=== PATIENT | female | born 2000 | race African-American/Black ===

== ENCOUNTER 2021-01-28 23:51 | Emergency (ER) | payer OTHER ==
[~2021-01-28] VITALS: Ht 152.4 cm; Wt 60.2 kg
--- NOTE | 2021-01-29 00:22 | PHYS DOC ---
Past History Past Medical History: No Pertinent History Past Surgical History: No Surgical History Alcohol Use: None Adult General Chief Complaint Chief Complaint: FLANK PAIN HPI HPI Patient is an otherwise healthy 20-year-old female, who presents to the emergency department with right flank pain. States that it started earlier in the day, is in the right flank, 7 out of 10, sharp in nature with occasional radiation down to her groin. States she is never had anything like this before. [place] and vomiting but she hasn't had either. Denies any recent traumas, travels, fevers chest pain, shortness of breath, other abdominal pain, dysuria, hematuria, blood in the stool. Denies any history of STIs, vaginal bleeding, discharge or pain. Review of Systems Review of Systems Review of systems otherwise unremarkable except noted in HPI Current Medications Current Medications Current Medications Medications (Trade) Dose Ordered Sig/Wes Start Time Stop Time Status Last Admin Dose Admin Morphine Sulfate (Morphine 4mg Syringe) 4 mg 1X ONCE 01/29/21 00:30 01/29/21 00:31 Allergies Allergies Allergies Coded Allergies Type Severity Reaction Last Updated Verified No Known Drug Allergies 01/29/21 No Physical Exam Physical Exam Constitutional: Well developed, well nourished, no acute distress, non-toxic appearance. [] HENT: Normocephalic, atraumatic, bilateral external ears normal, oropharynx moist, no oral exudates, nose normal. [] Eyes: conjunctiva normal, no discharge. [] Neck: Normal range of motion, no tenderness, supple, no stridor. [] Cardiovascular:Heart rate regular rhythm, no murmur [] Lungs & Thorax: Bilateral breath sounds clear to auscultation [] Abdomen: Bowel sounds normal, soft, no tenderness, no masses, no pulsatile masses. [] Skin: Warm, dry, no erythema, no rash. [] Back: No tenderness, no CVA tenderness. [] Extremities: No tenderness, no cyanosis, no clubbing, ROM intact, no edema. [] Neurologic: Alert and oriented X 3, no focal deficits noted. [] Psychologic: Affect normal, judgement normal, mood normal. [] Current Patient Data Vital Signs Vital Signs Date Time Temp Pulse Resp B/P (MAP) Pulse Ox O2 Delivery O2 Flow Rate FiO2 01/29/21 00:10 98.2 81 16 113/67 (82) 100 Room Air Lab Results Laboratory Tests Test 01/29/21 00:13 POC Urine HCG, Qualitative hcg negative (Negative) EKG EKG [] Radiology/Procedures Radiology/Procedures []T abdomen pelvis without contrast: Reason for examination: Right flank pain. Helical images were obtained through the abdomen and pelvis with no intravenous or oral contrast administered. Reconstruction was performed in sagittal and coronal planes. Exposure: One or more of the following individualized dose reduction techniques were utilized for this examination: 1. Automated exposure control 2. Adjustment of the mA and/or kV according to patient size 3. Use of iterative reconstruction technique. The lung bases are clear. The heart size is normal with no pericardial effusion evident. No abnormality seen at the liver, spleen, gallbladder, pancreas or adrenal glands. The stomach contains a large amount of gastric content but shows no gross obstruction. The small intestinal tract shows no abnormal dilatation or apparent obstruction. The colon shows no diverticulosis, diverticulitis or evidence of colitis. Due to the lack of intra-abdominal fat, the appendix is not identified. The kidneys show no masses, renal calculi or gross hydronephrosis or obstructive uropathy. The bladder is not optimally distended. No abnormality seen at the uterus or adnexa. There is possibly a trace of free fluid in the pelvis. No acute bony abnormalities are seen. IMPRESSION: No apparent hydronephrosis or obstructive uropathy evident. Trace of free fluid in the pelvis which may be physiologic. No other abnormalities apparent in the abdomen or pelvis. The appendix is not visualized due to lack of intra-abdominal fat and crowding of the abdominal structures. Electronically signed by: Lani Moreno MD (01/29/2021 1:09 AM) [facility] Heart Score C/O Chest Pain: No Risk Factors: Risk Factors: DM, Current or recent (<one month) smoker, HTN, HLP, family history of CAD, obesity. Risk Scores: Risk Factors: DM, Current or recent (<one month) smoker, HTN, HLP, family history of CAD, obesity. Course & Med Decision Making Course & Med Decision Making Patient is a 20-year-old female presents with right-sided flank pain for day Vital signs not concerning. Physical exam noted above. Patient placed on the monitor with IV access established. Given morphine for pain. No nausea medication needed at this time. Laboratory analysis not concerning. CT of the abdomen pelvis with no acute findings. Urinalysis with nitrite and leukocyte esterase positive urinary tract infection with some hematuria. Patient history, physical exam and diagnostic suggestive of pyelonephritis. Patient given Rocephin in the emergency department and started on antibiotic regimen. Discussed all findings with patient and recommended pain control at home. Recommended antibiotic regimen. Advised to call primary care physician first thing in the morning to update on ED visit and set up a follow-up. Gave return precautions to the ED. Patient grateful, verbalized understanding and agreed with plan of discharge. [] Dragon Disclaimer Dragon Disclaimer This electronic medical record was generated, in whole or in part, using a voice recognition dictation system. Departure Departure: Impression: Primary Impression: Flank pain Additional Impression: Pyelonephritis Disposition: HOME / SELF CARE / HOMELESS Condition: GOOD Referrals: PCP,UNKNOWN (PCP) CHEL ALMAGUER MD Patient Instructions: Pyelonephritis, Adult Additional Instructions: Thank you for coming into the emergency department tonight and letting us take care of you. Please read all the attached information carefully. Please take your antibiotics as prescribed and until gone. You can use Tylenol, Benadryl and ibuprofen as discussed for pain control at home. Please call your primary care physician first thing in the morning to update on your ED visit and set up a follow-up visit. Please come back to the emergency department with new or concerning symptoms as discussed. Scripts Cephalexin (CEPHALEXIN) 500 Mg Capsule 1 CAP PO Q6HRS for pyelonephritis for 10 Days, #39 CAP Prov: SEBASTIAN MALAVE MD 01/29/21 Problem Qualifiers SEBASTIAN MALAVE MD Jan 29, 2021 00:22
[2021-01-29 00:26] LABS: BILIRUBIN,URINE NEG (NEG); CLARITY,URINE HAZY; COLOR,URINE YELLOW; GLUCOSE,URINE NEG (NEG)
[2021-01-29 00:27] LABS: BACTERIA,URINE FEW /HPF (0-FEW); NITRITE,URINE POS (NEG); SQUAMOUS EPITHELIAL CELL,UR OCC /LPF; UROBILINOGEN,URINE 0.2 mg/dL (0.2 mg/dL); WBC,URINE 20-40 /HPF (0-4)
[2021-01-29 00:29] LABS: HEMATOCRIT 33.9 % (36.0-47.0); RED BLOOD COUNT 3.79 x10^6/uL (3.50-5.40); RED CELL DISTRIBUTION WIDTH 13.1 % (11.5-14.5)
[2021-01-29] MEDS ORDERED: MORPHINE SULFATE 4 MG/ML DISP.SYRIN. IV ONE (00:30)
[2021-01-29 00:40] LABS: CALCIUM 8.5 mg/dL (8.5-10.1); GFR 71.4; POTASSIUM 3.9 mmol/L (3.5-5.1)
[2021-01-29 00:46] LABS: ALBUMIN 3.7 g/dL (3.4-5.0); ALBUMIN/GLOBULIN RATIO 0.9 (1.0-1.7); TOTAL BILIRUBIN 0.7 mg/dL (0.2-1.0); TOTAL PROTEIN 7.9 g/dL (6.4-8.2)
--- NOTE | 2021-01-29 01:12 | RAD ---
CT abdomen pelvis without contrast: Reason for examination: Right flank pain. Helical images were obtained through the abdomen and pelvis with no intravenous or oral contrast admi nistered. Reconstruction was performed in sagittal and coronal planes. Exposure: One or more of the following individualized dose reduction techniques were utilized for thi s examination: 1. Automated exposure control 2. Adjustment of the mA and/or kV according to patient size 3. Use of iterative reconstruction technique. The lung bases are clear. The heart size is normal with no pericardial effusion evident. No abnormality seen at the liver, spleen, gallbladder, pancreas or adrenal glands. The stomach contai ns a large amount of gastric content but shows no gross obstruction. The small intestinal tract shows no abnormal dilatation or apparent obstruction. The colon shows no diverticulosis, diverticulitis or evidence of colitis. Due to the lack of intra-abdominal fat, the appendix is not identified. The kid neys show no masses, renal calculi or gross hydronephrosis or obstructive uropathy. The bladder is not optimally distended. No abnormality seen at the uterus or adnexa. There is possibl y a trace of free fluid in the pelvis. No acute bony abnormalities are seen. IMPRESSION: No apparent hydronephrosis or obstructive uropathy evident. Trace of free fluid in the pelvis which may be physiologic. No other abnormalities apparent in the abdomen or pelvis. The appendix is not visualized due to lack of intra-abdominal fat and crowding of the abdominal struc tures. Electronically signed by: Lani Moreno MD (01/29/2021 1:09 AM) [facility]
[2021-01-29] MEDS ORDERED: cefTRIAXone SODIUM 1 GM VIAL ONE (01:35)
[2021-01-29] MEDS ORDERED: IV NORMAL SALINE 50ML 50 ML ONE (01:35)
[2021-01-29] MEDS ORDERED: CEPH500C PO (01:44)
[2021-01-29 01:59] VITALS: BP 132/78
== END 2021-01-29 01:57 | disposition home or self-care (01) ==
LOC: ER 23:51
DX: N12 Tubulo-interstitial nephritis, not specified as acute or chronic (principal); R11.2 Nausea with vomiting, unspecified
CPT/HCPCS: 36415; 74150; 80053; 81001; 81025; 83690; 85027; 87086; 96365; 96375; 99284; J0696; J2270

== ENCOUNTER 2021-03-02 22:48 | Emergency (ER) | payer OTHER ==
[~2021-03-02 22:48] MED LIST: CEPH500C PO
--- NOTE | 2021-03-02 23:16 | PHYS DOC ---
Past History Past Medical History: No Pertinent History Past Surgical History: No Surgical History Alcohol Use: None General Adult EDM: Chief Complaint: CHEST PAIN HPI: HPI: ".. I ve been having chest pain tonight.. 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 Pt. localizes pain to central chest., . Patient states pain is somewhat increased with deep breath and cough. Patient denies any history of trauma while working in the long term. Patient does have past history of urinary tract infections, pyelonephritis,. Is up-to-date vaccinations. No specific ill contacts. Patient denies any fever or chills. No history of coagulopathy with her family members. Patient did have an episode of pyelonephritis last month which was treated with outpatient antibiotics. Patient has used caffeine products. Patient has had episodes of fast heart rate in the past. No history of recent travel. No history of severe ill contacts. No history immunosuppression. Review of Systems: Review of Systems: Constitutional: Denies fever or chills Eyes: Denies change in visual acuity HENT: Denies nasal congestion or sore throat Respiratory: Denies cough or shortness of breath Cardiovascular: Complains of central chest pain and tachycardia. GI: Denies abdominal pain, nausea, vomiting, bloody stools or diarrhea : Denies dysuria Musculoskeletal: Denies back pain or joint pain Integument: Denies rash Neurologic: Denies headache, focal weakness or sensory changes Endocrine: Denies polyuria or polydipsia Lymphatic: Denies swollen glands Psychiatric: Denies depression or anxiety Family History: Family History: Noncontributory to presentation Current Medications: Current Meds: Current Medications Medications (Trade) Dose Ordered Sig/Wes Start Time Stop Time Status Last Admin Dose Admin Aspirin (Aspirin Chewable) 324 mg 1X ONCE 03/02/21 23:30 03/02/21 23:31 Lactated Ringer's 1,000 ml @ 1,000 mls/hr Q1H 03/02/21 23:30 03/03/21 00:29 Allergies: Allergies: Allergies Coded Allergies Type Severity Reaction Last Updated Verified No Known Drug Allergies 01/29/21 No Physical Exam: PE: Constitutional: Well developed, well nourished, no acute distress, non-toxic appearance. [] HENT: Normocephalic, atraumatic, bilateral external ears normal, oropharynx moist, no oral exudates, nose normal. [] Eyes: PERRLA, EOMI, conjunctiva normal, no discharge. [] Neck: Normal range of motion, no tenderness, supple, no stridor. [] Cardiovascular: Tachycardia heart rate regular rhythm, no murmur []. The monitor bedside shows a sinus tachycardia with no acute morphology. Lungs & Thorax: Bilateral breath sounds equal at apex on auscultation [] Abdomen: Bowel sounds normal, soft, no tenderness, no masses, no pulsatile masses. [] Skin: Warm, dry, no erythema, no rash. [] Back: No tenderness, no CVA tenderness. [] Extremities: No tenderness, no cyanosis, no clubbing, ROM intact, no edema. No cording appreciated in legs. Neurologic: Alert and oriented X 3, normal motor function, normal sensory function, no focal deficits noted. [] Psychologic: Affect anxious, judgement normal, mood normal. [] EKG: EKG: My interpretation of EKG 1 #1 shows a sinus tachycardia 133 bpm. Some by metal P waves on the left. No findings acute STEMI of contralateral changes. Time EKG 2256 hrs. My interpretation EKG #2 shows a sinus rhythm at 68 bpm. Bimodal P waves on the left. But no findings of acute STEMI of contralateral changes. Time of this EKG is 0306 hrs. (no acute interval change other than rate )[ Radiology/Procedures: Radiology/Procedures: []][place] [id number] IMAGING REPORT Signed PATIENT: BERNADETTE GOMEZ I ACCOUNT: [id number] : 2000 LOCATION: ER AGE: 20 SEX: F EXAM STATUS: REG ER ORD. PHYSICIAN: LISA REYNOLDS MD REASON: cp PROCEDURE: PORTABLE CHEST 1V XR CHEST 1V INDICATION: cp COMPARISON STUDY: None. FINDINGS: Lungs: Normal lung volume. No pulmonary mass or consolidation. The tracheobronchial tree and hilar structures are normal. Pleura: No pleural effusion or pneumothorax. Heart and Mediastinum: The cardiomediastinal silhouette is normal. The great vessels of the thorax are normal. Bones and Soft Tissues: The bones and soft tissues are within normal limits. IMPRESSION: No acute cardiopulmonary process. Electronically signed by: Pancho Ford MD (03/03/2021 12:24 AM) [facility] DICTATED AND SIGNED BY: PANCHO FORD MD DATE: 03/03/21 0024 CC: LISA REYNOLDS MD; PCP,UNKNOWN ~MTH0 0 Heart Score: C/O Chest Pain: Yes HEART Score for Chest Pain: HEART Score for Chest Pain Response (Comments) Value History Slighlty/Non-Suspicious 0 ECG Normal 0 Age < 45 0 Risk Factors No Risk Factors 0 Troponin < Normal Limit 0 Total 0 Risk Factors: Risk Factors: DM, Current or recent (<one month) smoker, HTN, HLP, family history of CAD, obesity. Risk Scores: Score 0 - 3: 2.5% MACE over next 6 weeks - Discharge Home Score 4 - 6: 20.3% MACE over next 6 weeks - Admit for Clinical Observation Score 7 - 10: 72.7% MACE over next 6 weeks - Early Invasive Strategies Course & Med Decision Making: Course & Med Decision Making Pertinent Labs and Imaging studies reviewed. (See chart for details) Patient symptoms has resolved at time of discharge. Patient encouraged to take daily aspirin. Patient take Tylenol and ibuprofen for pain. Consider follow-up with [facility]. Consider outpatient stress testing. Patient with negative tropes x2 and a normal D-dimer patient is a relatively low risk for acute cardiac event or pulmonary embolism embolism. However must follow-up with primary care. Patient t also recommend taking Bactrim DS twice a day and follow-up urine cultures since she did have findings of urinary tract infection still. Follow- up pending cultures essential since her previous episode of pyelonephritis. Patient avoid caffeine products. Return if any concerns. Patient return if any concerns. Impression: 1. Chest Gtnp-ngffhugn-odgny wall 2. UTI 3. History of dysrhythmias-tachycardia [] Dragon Disclaimer: Dragon Disclaimer: This electronic medical record was generated, in whole or in part, using a voice recognition dictation system. Departure Departure: Referrals: PCP,UNKNOWN (PCP) Scripts Sulfamethoxazole/Trimethoprim (BACTRIM DS TABLET) 1 Each Tablet 1 TAB PO BID for uti for 7 Days, #14 TAB 0 Refills Prov: LISA REYNOLDS MD 03/03/21 Dragon Disclaimer This chart was dictated in whole or in part using Voice Recognition software in a busy, high-work load, and often noisy Emergency Department environment. It may contain unintended and wholly unrecognized errors or omissions. LISA REYNOLDS MD Mar 02, 2021 23:16
[2021-03-02] MEDS ORDERED: IV RINGERS SOLUTION,LACTATED 1,000 ML IV SCH (23:30)
[2021-03-02] MEDS ORDERED: ASPIRIN CHEWABLE 81 MG TABLET. PO ONE (23:30)
[2021-03-03 00:21] LABS: BASO # 0.1 x10^3/uL (0.0-0.2); BASO % 1 % (0-3); EOS # 0.1 x10^3/uL (0.0-0.7); EOS % 2 % (0-3); HEMATOCRIT 36.7 % (36.0-47.0); HEMOGLOBIN 11.9 g/dL (12.0-15.5); LYMPH # 2.3 x10^3/uL (1.0-4.8); LYMPH % 36 % (24-48); MEAN CORPUSCULAR HEMOGLOBIN 29 pg (25-35); MEAN CORPUSCULAR HGB CONC 32 g/dL (31-37); MEAN CORPUSCULAR VOLUME 91 fL (79-100); MONO # 0.5 x10^3/uL (0.0-1.1); MONO % 7 % (0-9); NEUT # 3.5 x10^3uL (1.8-7.7); NEUT % 54 % (31-73); PLATELET COUNT 248 x10^3/uL (140-400); RED BLOOD COUNT 4.06 x10^6/uL (3.50-5.40); RED CELL DISTRIBUTION WIDTH 13.4 % (11.5-14.5); WHITE BLOOD COUNT 6.5 x10^3/uL (4.0-11.0)
[2021-03-03 00:27] LABS: BACTERIA,URINE FEW /HPF (0-FEW); BILIRUBIN,URINE NEG (NEG); CLARITY,URINE CLEAR; COLOR,URINE YELLOW; GLUCOSE,URINE NEG (NEG); NITRITE,URINE NEG (NEG); SQUAMOUS EPITHELIAL CELL,UR OCC /LPF; UROBILINOGEN,URINE 0.2 mg/dL (0.2 mg/dL)
[2021-03-03 00:27] LABS: CALCIUM 8.8 mg/dL (8.5-10.1); CREATININE 0.9 mg/dL (0.6-1.0); GFR 97.6; POTASSIUM 3.8 mmol/L (3.5-5.1)
--- NOTE | 2021-03-03 00:27 | RAD ---
XR CHEST 1V INDICATION: cp COMPARISON STUDY: None. FINDINGS: Lungs: Normal lung volume. No pulmonary mass or consolidation. The tracheobronchial tree and hilar st ructures are normal. Pleura: No pleural effusion or pneumothorax. Heart and Mediastinum: The cardiomediastinal silhouette is normal. The great vessels of the thorax ar e normal. Bones and Soft Tissues: The bones and soft tissues are within normal limits. IMPRESSION: No acute cardiopulmonary process. Electronically signed by: Vish Ford MD (03/03/2021 12:24 AM) [facility]
[2021-03-03 00:28] LABS: BARBITURATES NEG (NEG); BENZODIAZEPINES NEG (NEG); CANNABINOIDS NEG (NEG); COCAINE NEG (NEG); METHADONE NEG (NEG); OPIATES NEG (NEG); PHENCYCLIDINE NEG (NEG)
[2021-03-03 00:38] LABS: AMPHETAMINE/METHAMPHETAMINE NEG (NEG)
[2021-03-03 00:40] LABS: ALBUMIN 4.3 g/dL (3.4-5.0); DIRECT BILIRUBIN 0.2 mg/dL (0.0-0.2); MAGNESIUM 2.1 mg/dL (1.8-2.4); TOTAL BILIRUBIN 0.7 mg/dL (0.2-1.0); TOTAL PROTEIN 8.4 g/dL (6.4-8.2)
[2021-03-03] MEDS ORDERED: SULF1TAB24 PO (03:32)
[2021-03-03] MEDS ORDERED: SMZ/TMP 800/160MG TABLET. PO ONE (04:00)
[2021-03-03 04:15] LABS: ACETAMIN < 2.0 mcg/mL (10-30); ETHANOL < 10 mg/dL (0-10); SALIC < 2.8 mg/dL (2.8-20.0)
--- NOTE | 2021-03-03 05:55 | EKG ---
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
--- NOTE | 2021-03-03 19:26 | EKG ---
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
== END 2021-03-03 04:15 | disposition home or self-care (01) ==
LOC: ER 22:48
DX: R07.89 Other chest pain (principal); N39.0 Urinary tract infection, site not specified
CPT/HCPCS: 36415; 71045; 80048; 80076; 80307; 80329; 81001; 81025; 82550; 83690; 83735; 83880; 84443; 84484; 85025; 85379; 85610; 85730; 87086; 93005; 96360; 99285; G0480; J7120